=== PATIENT | female | born 1950 | race Caucasian/White ===

== ENCOUNTER → 2017-03-29 | Outpatient (CLI) | payer OTHER ==
[~2017-03-29] MED LIST: ASPI-496 PO; ASPI-515 PO; CLAR500T3 PO; ESTR1VAG3 CERVICAL; IBUP1TAB PO; LORA-439 PO; MECL25TA4 PO; METH4TAB6 PO; ONDA4TAB10 PO; Oxycodone PO; PANT40TA3 PO; PRAV10TA2 PO; SUCR1ORA11 PO; TRAM50TA2 PO
== END | disposition home or self-care (01) ==
LOC: CFH 15:07
PROVIDERS: ATTEND Specialist
DX: J32.9 Chronic sinusitis, unspecified (principal)
CPT/HCPCS: 76380

== ENCOUNTER 2021-01-22 10:47 | Outpatient (CLI) | payer MEDICARE ==
[~2021-01-22 10:47] MED LIST changes: -ASPI-515 PO; +ASPI-963 PO; -ESTR1VAG3 CERVICAL; +ESTR1VAG7 CERVICAL; +MECL-101 PO; -MECL25TA4 PO; -SUCR1ORA11 PO; +SUCR1ORA14 PO
[2021-01-22 12:23] LABS: CREATININE 0.82 mg/dL (0.55-1.02)
[2021-01-22] MEDS ORDERED: OMNIPAQUE 350 MG/ML, 75ML BOTTLE ONE (13:22)
== END 2021-01-22 23:59 | disposition home or self-care (01) ==
LOC: RAD 10:47
PROVIDERS: ATTEND Family Medicine
DX: H93.8X2 Other specified disorders of left ear (principal)
CPT/HCPCS: 36415; 70487; 82565; Q9967